=== PATIENT | male | born 1990 | race Caucasian/White ===

== ENCOUNTER 2018-05-18 15:48 | Emergency (ER) | payer OTHER ==
[~2018-05-18] VITALS: Ht 177.8 cm; Wt 95.5 kg
[2018-05-18 16:03] VITALS: BP 133/64; TEMP 99.4
[2018-05-18 16:51] VITALS: PULSE 88
== END 2018-05-18 16:52 | disposition home or self-care (01) ==
LOC: COL.ER 15:48
DX: S99.911A Unspecified injury of right ankle, initial encounter (principal); S93.401A Sprain of unspecified ligament of right ankle, initial encounter; F41.9 Anxiety disorder, unspecified; F32.9 Major depressive disorder, single episode, unspecified; F43.10 Post-traumatic stress disorder, unspecified; F17.210 Nicotine dependence, cigarettes, uncomplicated; F12.10 Cannabis abuse, uncomplicated; X50.1XXA Overexertion from prolonged static or awkward postures, initial encounter; Y92.814 Boat as the place of occurrence of the external cause

== ENCOUNTER 2018-05-25 13:49 | Emergency (ER) | payer OTHER ==
[~2018-05-25] VITALS: Ht 177.8 cm; Wt 95.5 kg
[2018-05-25 13:53] VITALS: BP 146/91; TEMP 99.1
[2018-05-25] MEDS ORDERED: XANAX 1MG1 MG PO (14:04)
[2018-05-25] MEDS ORDERED: CYMBALTA 30MG30 MG PO (14:04)
[2018-05-25] MEDS ORDERED: NORCO 325 MG-51 TAB PO (14:09)
[2018-05-25 14:15] VITALS: PULSE 73
== END 2018-05-25 14:15 | disposition home or self-care (01) ==
LOC: COL.ER 13:49
DX: S99.911A Unspecified injury of right ankle, initial encounter (principal); F17.210 Nicotine dependence, cigarettes, uncomplicated; F32.9 Major depressive disorder, single episode, unspecified; F41.9 Anxiety disorder, unspecified; V93.39XA Fall on board unspecified watercraft, initial encounter; X50.1XXA Overexertion from prolonged static or awkward postures, initial encounter

== ENCOUNTER 2021-05-01 13:56 | Emergency (ER) | payer OTHER ==
[~2021-05-01] VITALS: Ht 180.3 cm; Wt 80.0 kg
[~2021-05-01 13:56] MED LIST: CYMBALTA 30MG30 MG PO; NORCO 325 MG-51 TAB PO; XANAX 1MG1 MG PO
[2021-05-01 14:30] VITALS: BP 132/70; PULSE 67; TEMP 98.8
== END 2021-05-01 14:35 | disposition left against medical advice (07) ==
LOC: COL.ER 13:56
DX: M54.6 Pain in thoracic spine (principal)

== ENCOUNTER 2022-01-09 14:41 | Emergency (ER) | payer OTHER ==
[~2022-01-09] VITALS: Ht 180.3 cm; Wt 80.5 kg
[2022-01-09] MEDS ORDERED: NORCO 325 MG-51 TAB PO (15:14)
[2022-01-09] MEDS ORDERED: ROBAXIN 75750 MG/TAB PO (15:14)
[2022-01-09 15:37] VITALS: BP 127/68; PULSE 68; TEMP 97.9
== END 2022-01-09 15:38 | disposition home or self-care (01) ==
LOC: COL.ER 14:41
DX: S16.1XXA Strain of muscle, fascia and tendon at neck level, initial encounter (principal); X50.1XXA Overexertion from prolonged static or awkward postures, initial encounter; Y93.B9 Activity, other involving muscle strengthening exercises

== ENCOUNTER 2022-05-03 11:31 | Emergency (ER) | payer OTHER ==
[~2022-05-03] VITALS: Ht 180.3 cm; Wt 80.0 kg
[~2022-05-03 11:31] MED LIST changes: +ROBAXIN 75750 MG/TAB PO
[2022-05-03 11:45] VITALS: TEMP 98.1
[2022-05-03 13:16] VITALS: BP 140/81; PULSE 65
== END 2022-05-03 13:16 | disposition home or self-care (01) ==
LOC: COL.ER 11:31
DX: S61.511A Laceration without foreign body of right wrist, initial encounter (principal); F17.210 Nicotine dependence, cigarettes, uncomplicated; Z20.822 Contact with and (suspected) exposure to COVID-19; W25.XXXA Contact with sharp glass, initial encounter

== ENCOUNTER → 2023-08-21 | Outpatient (CLI) | payer OTHER | LOC: MHCPAIN 09:36 | DX: M50.222 Other cervical disc displacement at C5-C6 level (principal); M54.12 Radiculopathy, cervical region | CPT/HCPCS: G0463 ==